=== PATIENT | male | born 1985 | race Two or more races ===

== ENCOUNTER 2018-02-23 10:01 | Outpatient (CLI) | payer BC ==
[2018-02-23 10:43] LABS: BASOPHILS % (AUTO) 0.3 % (0.0-2.0); HEMATOCRIT 46 % (39-51); HEMOGLOBIN 13.9 g/dL (13.5-17.5); LYMPHOCYTES # (AUTO) 1.8 /CMM (0.8-4.8); LYMPHOCYTES % (AUTO) 21.4 % (20.0-44.0); MEAN CORPUSCULAR HEMOGLOBIN 21 PG (26.0-33.0); MEAN CORPUSCULAR HGB CONC 30 g/dl (31.0-36.0); MEAN CORPUSCULAR VOLUME 70 fL (80-96); MONOCYTES # (AUTO) 0.6 /CMM (0.1-1.30); MONOCYTES % (AUTO) 7.1 % (2.0-12.0); NEUTROPHILS # (AUTO) 5.6 /CMM (1.8-8.9); NEUTROPHILS % (AUTO) 68.2 % (43.0-81.0); PLATELET COUNT (AUTO) 307 /CMM (150-450); RDW COEFFICIENT OF VARIATION 15.7 (11.5-15.0); RED BLOOD CELL COUNT(AUTO) 6.52 MIL/uL (4.5-6.0); WHITE BLOOD COUNT (AUTO) 8.2 K/uL (4.3-11.0)
[2018-02-23 10:47] LABS: APPEARANCE,URINE SL CLOUDY (CLEAR); BILIRUBIN,URINE NEGATIVE (NEGATIVE); BLOOD, URINE NEGATIVE Ery/uL (NEGATIVE); COLOR,URINE YELLOW (YELLOW); KETONES,URINE NEGATIVE (NEGATIVE); LEUKOCYTE ESTERASE ,URINE NEGATIVE (NEGATIVE); NITRITE, URINE NEGATIVE (NEGATIVE); PROTEIN,URINE NEGATIVE (NEGATIVE); UGLUCOSE NEGATIVE (NEGATIVE); UROBILINOGEN,URINE 0.2 EU/dL (0.2)
[2018-02-23 11:11] LABS: ALBUMIN 3.8 g/dL (3.4-5.0); BILIRUBIN,TOTAL 0.5 mg/dL (0.2-1.0); CALCIUM, SERUM 9.3 mg/dL (8.5-10.1); POTASSIUM 4.5 mmol/L (3.5-5.1); TOTAL PROTEIN, SERUM 7.3 g/dL (6.4-8.2)
[2018-02-23 11:20] LABS: THYROID STIMULATING HORMONE 1.312 uIU/mL (0.358-3.74); URIC ACID 6.3 mg/dL (2.6-7.2)
[2018-02-23 11:30] LABS: NEUTROPHILS % (MANUAL) 72 (42-76)
[2018-02-23 11:31] LABS: EOSINOPHILS % (MANUAL) 5 % (0-4); LYMPHOCYTES % (MANUAL) 17 % (16-48); MONOCYTES % (MANUAL) 6 % (0-11.0)
== END 2018-02-23 23:59 | disposition home or self-care (01) ==
LOC: LAB 10:01
PROVIDERS: ATTEND Legal Medicine
DX: Z00.01 Encounter for general adult medical examination with abnormal findings (principal); R06.02 Shortness of breath
CPT/HCPCS: 71046; 80053-TC; 80061-TC; 81000-TC; 82728-TC; 83540-TC; 83880; 84402-TC; 84439-TC; 84443-TC; 84550-TC; 85025-TC

== ENCOUNTER 2018-02-26 08:27 | Outpatient (CLI) | payer BC | END 2018-02-26 23:59 | disposition home or self-care (01) | LOC: CARD 08:27 | PROVIDERS: ATTEND Legal Medicine | DX: I34.0 Nonrheumatic mitral (valve) insufficiency (principal); I35.8 Other nonrheumatic aortic valve disorders; N28.1 Cyst of kidney, acquired; I10 Essential (primary) hypertension | CPT/HCPCS: 76700-TC; 93307-TC ==

== ENCOUNTER 2018-10-15 12:14 | Outpatient (CLI) | payer BC | END 2018-10-15 23:59 | disposition home or self-care (01) | LOC: MRI 12:14 | PROVIDERS: ATTEND Legal Medicine | DX: M48.02 Spinal stenosis, cervical region (principal); M50.11 Cervical disc disorder with radiculopathy, high cervical region; M46.02 Spinal enthesopathy, cervical region; M40.292 Other kyphosis, cervical region; G93.89 Other specified disorders of brain | CPT/HCPCS: 70551-TC; 72141-TC ==

== ENCOUNTER 2018-12-14 09:13 | Outpatient (CLI) | payer BC | END 2018-12-14 23:59 | disposition home or self-care (01) | LOC: MRI 09:13 | PROVIDERS: ATTEND Legal Medicine | DX: M48.07 Spinal stenosis, lumbosacral region (principal); M54.16 Radiculopathy, lumbar region; M79.605 Pain in left leg; M12.88 Other specific arthropathies, not elsewhere classified, other specified site | CPT/HCPCS: 72148-TC; 93970-TC ==

== ENCOUNTER 2019-09-08 15:52 | Emergency (ER) | payer SELFPAY ==
[~2019-09-08] VITALS: Ht 172.7 cm; Wt 73.5 kg
--- NOTE | 2019-09-08 16:00 | NUR ---
patient came in to the er c/o sore throat, headache, low grade fever, dry cough on and off x 6 days exposure to +covid patient. on room air, breathing evenly and unlabored. kept comfortable, will continue to monitor accordingly.
[2019-09-08 17:27] VITALS: BP 132/83
--- NOTE | 2019-09-08 17:27 | NUR ---
Patient discharged to home in stable condition. Written and verbal after care instructions given. Patient verbalizes understanding of instruction.
== END 2019-09-08 17:27 | disposition home or self-care (01) ==
LOC: ER 15:57
DX: J02.9 Acute pharyngitis, unspecified (principal); R51 Headache; R50.9 Fever, unspecified; R05 Cough; Z20.828 Contact with and (suspected) exposure to other viral communicable diseases
CPT/HCPCS: 0099U; 71045; 87635; 87804 ×2; 99284; 36415

== ENCOUNTER 2020-05-29 18:34 | Emergency (ER) | payer OTHER ==
[~2020-05-29] VITALS: Ht 175.3 cm; Wt 74.8 kg
[2020-05-29 18:36] VITALS: BP 121/80
--- NOTE | 2020-05-29 19:03 | NUR ---
PT SWABBED FOR COVID, SAMPLES SENT TO LAB, PT DISCHARGED WITH VERBAL INSTRUCTIONS TO ISOLATE AT HOME UNTIL RESULTS.
== END 2020-05-29 19:04 | disposition home or self-care (01) ==
LOC: ER 18:36
DX: U07.1 COVID-19 (principal); R52 Pain, unspecified
CPT/HCPCS: 87426; 99283; C9803; U0003